=== PATIENT | male | born 1950 | race Caucasian/White ===

== ENCOUNTER → 2024-06-14 | Outpatient (REF) | payer MEDICARE ==
[~2024-06-14] MED LIST: METHOTREXATE2.5 MG PO; XARELTO15 MG PO; XARELTO20 MG PO
== END ==
LOC: RAD 08:33
PROVIDERS: ATTEND Nurse Practitioner Family
DX: R09.02 Hypoxemia (principal); J44.9 Chronic obstructive pulmonary disease, unspecified; R91.8 Other nonspecific abnormal finding of lung field; Z86.711 Personal history of pulmonary embolism
CPT/HCPCS: 71046

== ENCOUNTER → 2024-07-04 | Outpatient (REF) | payer MEDICARE | LOC: CT 14:04 | PROVIDERS: ATTEND Nurse Practitioner Family | DX: R09.02 Hypoxemia (principal); R06.02 Shortness of breath; R91.8 Other nonspecific abnormal finding of lung field; Z86.711 Personal history of pulmonary embolism; Z87.891 Personal history of nicotine dependence | CPT/HCPCS: 71250 ==